=== PATIENT | female | born 1990 | race African-American/Black ===

== ENCOUNTER 2023-05-27 22:21 | Observation (INO) ==
[2023-05-27 23:06] LABS: Activated Partial Thrombo Time 33.2 seconds (26.0-38.0); INR 1.02 (0.83-1.13)
[2023-05-27 23:24] LABS: High Sens Troponin Baseline 4 pg/mL (<15)
[2023-05-27 23:32] LABS: ALT 10 U/L (7-52); AST 20 U/L (13-39); Albumin 4.8 g/dL (3.2-5.2); Albumin/Globulin Ratio 1.4 (1-3); Alkaline Phosphatase 77 U/L (35-149); Anion Gap 6 mmol/L (2-16); Blood Urea Nitrogen 12 mg/dL (6-24); CO2 Carbon Dioxide 30 mmol/L (22-32); Calcium 9.8 mg/dL (8.6-10.3); Chloride 102 mmol/L (101-111); Creatinine, Serum 0.87 mg/dL (0.51-0.95); Globulin 3.5 g/dL (2-4); Glucose 89 mg/dL (70-100); Potassium 3.2 mmol/L (3.5-5.0); Sodium 138 mmol/L (135-145); Total Bilirubin 0.5 mg/dL (0.2-1.0); Total Protein 8.3 g/dL (6.4-8.9)
[2023-05-28 00:10] LABS: ABS Basophils 0.1 10^3/uL (0.0-0.1); ABS Eosinophils 0.1 10^3/uL (0.0-0.5); ABS Lymphocytes 3.4 10^3/uL (1.0-4.8); ABS Monocytes 0.4 10^3/uL (0.0-0.9); ABS Neutrophils 4.7 10^3/uL (1.5-7.6); ABS Nucleated RBC 0.02 10^3/ul; Eosinophil % 1.5 %; Hematocrit 28.2 % (35-45); Hemoglobin 8.9 g/dL (11.5-14.3); Hypochromasia 1+; Lymphocyte % 38.8 %; Mean Corpuscular Hemoglobin 19.2 pg (27-33); Mean Corpuscular Hgb Conc 31.5 g/dL (31-36); Mean Platelet Volume 8.5 fL (7.5-11.2); Microcytosis 3+; Nucleated Red Blood Cells % 0.2 %/100WBC (0.0-0.8); Platelet Count 417 10^3/uL (150-450); Red Blood Count 4.62 10^6/uL (3.63-4.92); Red Cell Distribution Width 20.8 % (12-17); White Blood Count 8.7 10^3/uL (3.8-11.8)
[2023-05-28 00:22] LABS: High Sensitivity Troponin 1 Hr 3 pg/mL (<15)
[2023-05-28] MEDS: Potassium Chlor 20 meq TAB.ER PO ONE (00:32)
[2023-05-28] MEDS ORDERED: Magnesium Hydroxide LIQ 30 ML UDC PO PRN (02:38)
[2023-05-28] MEDS ORDERED: Al Hydrox/Mg Hydrox/Simet LIQ 30 ML UDC PO PRN (02:38)
[2023-05-28] MEDS: Iohexol 350 (CONTRAST) 500 ML MDV IV ONE (02:56)
[2023-05-28 03:47] LABS: % Iron Saturation 3 % (15-55); .Transferrin 472 mg/dL (203-362); C Reactive Protein < 1.00 mg/L (<8.01); Iron 23 ug/dL (50-212); Total Iron Binding Capacity 661 mcg/dL (250-450); Unsaturated Iron Binding 638 ug/dL
[2023-05-28 04:10] LABS: Ferritin 2.1 ng/mL (11-307)
[2023-05-28 04:13] LABS: Folate 7.73 ng/mL (5.90-24.80)
[2023-05-28 04:14] LABS: Vitamin B12 224 pg/mL (180-914)
[2023-05-28 04:43] LABS: Erythrocyte Sed Rate 20 mm/Hr (0-19)
[2023-05-28 08:55] LABS: ABS Basophils 0.1 10^3/uL (0.0-0.1); ABS Eosinophils 0.1 10^3/uL (0.0-0.5); ABS Lymphocytes 1.4 10^3/uL (1.0-4.8); ABS Monocytes 0.4 10^3/uL (0.0-0.9); ABS Nucleated RBC 0.01 10^3/ul; Eosinophil % 2.2 %; Hematocrit 25.9 % (35-45); Hemoglobin 8.2 g/dL (11.5-14.3); Lymphocyte % 22.8 %; Mean Corpuscular Hemoglobin 19.3 pg (27-33); Mean Corpuscular Hgb Conc 31.6 g/dL (31-36); Mean Platelet Volume 8.5 fL (7.5-11.2); Nucleated Red Blood Cells % 0.1 %/100WBC (0.0-0.8); Platelet Count 379 10^3/uL (150-450); Red Blood Count 4.25 10^6/uL (3.63-4.92); Red Cell Distribution Width 20.7 % (12-17); White Blood Count 5.9 10^3/uL (3.8-11.8)
[2023-05-28 09:42] LABS: Calcium 8.7 mg/dL (8.6-10.3); Creatinine, Serum 0.7 mg/dL (0.51-0.95); Magnesium 1.9 mg/dL (1.9-2.7); Potassium 3.3 mmol/L (3.5-5.0); eGFR CKD-EPI 115.6 (>60)
[2023-05-28] MEDS ORDERED: hydrALAZINE 20 mg/ml 1 ML Vial IV ONE (10:03)
[2023-05-28] MEDS: Morphine 2 MG/ML SYRINGE IV PRN (10:07)
[2023-05-28] MEDS: hydrALAZINE 20 mg/ml 1 ML Vial IV IV SLOW PU PRN (10:08)
[2023-05-28 10:20] LABS: High Sensitivity Troponin 1 Hr 5 pg/mL (<15)
[2023-05-28] MEDS: Ondansetron 4 mg VIAL 2 MG/ML 2 ml VIAL IV PRN (11:13)
[2023-05-28] MEDS: KCL 20 MEQ/100 ML IVPREMIX 20 MEQ/100 ML BAG IV SCH (21:13)
[2023-05-29] MEDS: Ferric Gluconate IV 250 MG in NS 0.9% 250 ml 200 ML IVPB SCH (00:18)
[2023-05-29 06:31] LABS: Hematocrit 26.2 % (35-45); Hemoglobin 8.2 g/dL (11.5-14.3); Mean Corpuscular Hemoglobin 19.1 pg (27-33); Mean Corpuscular Hgb Conc 31.3 g/dL (31-36); Mean Corpuscular Volume 61.1 fL (80-97); Mean Platelet Volume 8.6 fL (7.5-11.2); Platelet Count 384 10^3/uL (150-450); Red Blood Count 4.29 10^6/uL (3.63-4.92); Red Cell Distribution Width 20.8 % (12-17); White Blood Count 7.1 10^3/uL (3.8-11.8)
[2023-05-29 06:47] LABS: Calcium 9.3 mg/dL (8.6-10.3); Creatinine, Serum 0.64 mg/dL (0.51-0.95); Potassium 3.4 mmol/L (3.5-5.0); eGFR CKD-EPI 118.1 (>60)
[2023-05-29 07:54] LABS: ABS Nucleated RBC 0.01 10^3/ul; Anisocytosis 2+; Hypochromasia 2+; Microcytosis 3+; Nucleated Red Blood Cells % 0.1 %/100WBC (0.0-0.8)
[2023-05-29] MEDS: KCL 20 MEQ/100 ML IVPREMIX 20 MEQ/100 ML BAG IV SCH (08:14)
[2023-05-30 06:27] LABS: ABS Eosinophils 0.1 10^3/uL (0.0-0.5); ABS Lymphocytes 1.4 10^3/uL (1.0-4.8); ABS Monocytes 0.5 10^3/uL (0.0-0.9); ABS Neutrophils 5.2 10^3/uL (1.5-7.6); ABS Nucleated RBC 0.01 10^3/ul; Eosinophil % 1.8 %; Hematocrit 26.6 % (35-45); Hemoglobin 8.2 g/dL (11.5-14.3); Lymphocyte % 19.2 %; Mean Corpuscular Hemoglobin 19.1 pg (27-33); Mean Corpuscular Hgb Conc 30.8 g/dL (31-36); Mean Platelet Volume 8.6 fL (7.5-11.2); Nucleated Red Blood Cells % 0.1 %/100WBC (0.0-0.8); Platelet Count 386 10^3/uL (150-450); Red Blood Count 4.29 10^6/uL (3.63-4.92); Red Cell Distribution Width 20.8 % (12-17); White Blood Count 7.3 10^3/uL (3.8-11.8)
[2023-05-30 06:49] LABS: Calcium 9.3 mg/dL (8.6-10.3); Creatinine, Serum 0.78 mg/dL (0.51-0.95); Potassium 3.8 mmol/L (3.5-5.0); eGFR CKD-EPI 101.5 (>60)
[2023-05-31 08:42] LABS: Hematocrit 25.7 % (35-45); Hemoglobin 8.1 g/dL (11.5-14.3); Mean Corpuscular Hemoglobin 19.4 pg (27-33); Mean Corpuscular Hgb Conc 31.5 g/dL (31-36); Mean Corpuscular Volume 61.6 fL (80-97); Mean Platelet Volume 8.5 fL (7.5-11.2); Platelet Count 382 10^3/uL (150-450); Red Blood Count 4.17 10^6/uL (3.63-4.92); Red Cell Distribution Width 20.5 % (12-17); White Blood Count 6.9 10^3/uL (3.8-11.8)
[2023-05-31 08:43] LABS: Nucleated Red Blood Cells % 0.1 %/100WBC (0.0-0.8)
[2023-05-31 09:39] VITALS: BP 129/86
[2023-05-31 09:57] LABS: Acanthocytes 1+; Anisocytosis 2+; Burr Cells 1+; Hypochromasia 2+; Polychromasia 1+; Target Cells 1+; Tear Drop Cells 1+
[2023-05-31 12:52] LABS: Renin <0.6 ng/mL/h
[2023-06-02 16:29] LABS: Hb A 65.9 % (95.8-98.0); Hb A2 2.7 % (2.0-3.3); Hb F 0.2 % (0.0-0.9); Variant 1 31.2 Hb S % (0.0)
[2023-06-03 09:37] LABS: Sickle Solubility, B Positive
== END 2023-05-31 12:40 | disposition home or self-care (01) ==
LOC: ED 22:21 → EDHOLD 22:21 → SUATTDRO 05-28 02:38 → MEDTELE 05-28 08:29 → EDHOLD 05-28 08:56 → MEDTELE 05-29 09:59
PROVIDERS: ADMIT Internal Medicine; ATTEND Internal Medicine